=== PATIENT | female | born 1970 | race Caucasian/White ===

== ENCOUNTER 2021-09-18 04:50 | Emergency (ER) | payer OTHER ==
[2021-09-18 05:17] LABS: BASOPHIL 0.6 % (0-2); EOSINOPHIL 4.5 % (0-5); HCT 41.5 % (37.0-47.0); HGB 14.3 g/dl (12.5-16.0); LYMPHOCYTE 45.7 % (15-48); MCH 29.9 pg (25.0-31.0); MCHC 34.5 g/dL (32.0-36.0); MCV 86.6 fL (78.0-100.0); MONOCYTE 6.3 % (0-12); MPV 8.7 fL (6.0-9.5); NEUTROPHIL 42.6 % (41-80); NRBC 0; PLT 274 K/uL (150-400); RBC 4.79 M/uL (4.20-5.40); RDW 12.4 % (11.5-14.0); WBC 6.2 K/uL (4.0-10.5)
[2021-09-18 06:09] LABS: CREATININE 0.74 mg/dL (0.51-0.95); POTASSIUM 4.2 mmol/L (3.5-5.1)
[2021-09-18 06:23] LABS: ALBUMIN 3.7 g/dL (3.4-5.0); BILIRUBIN - TOTAL 0.3 mg/dL (0.2-1.0); C-REACTIVE PROTEIN 1.5 mg/dL (<=0.90); GLOBULIN (CALCULATION) 3.4 g/dL; TOTAL PROTEIN 7.1 g/dL (6.4-8.2)
== END 2021-09-18 08:30 | disposition home or self-care (01) ==
LOC: FER 04:50
PROVIDERS: Emergency Medicine
DX: U07.1 COVID-19 (principal); R07.89 Other chest pain; I10 Essential (primary) hypertension
CPT/HCPCS: 36415; 71045; 80053; 84484; 85025; 85379; 86140; 93005; J2270; J7030

== ENCOUNTER 2022-03-06 17:51 | Emergency (ER) | payer OTHER ==
[2022-03-06 18:19] LABS: BASOPHIL 0.6 % (0-2); EOSINOPHIL 3.8 % (0-5); HCT 44.3 % (37.0-47.0); LYMPHOCYTE 30.6 % (15-48); MCH 30.1 pg (25.0-31.0); MCHC 33.9 g/dL (32.0-36.0); MCV 88.8 fL (78.0-100.0); MONOCYTE 9.2 % (0-12); MPV 8.8 fL (6.0-9.5); NEUTROPHIL 55.6 % (41-80); NRBC 0; PLT 347 K/uL (150-400); RBC 4.99 M/uL (4.20-5.40); RDW 12.7 % (11.5-14.0); WBC 9.8 K/uL (4.0-10.5)
[2022-03-06 18:35] LABS: ALBUMIN 3.9 g/dL (3.4-5.0); BILIRUBIN - TOTAL 0.3 mg/dL (0.2-1.0); BUN/CREAT RATIO (CALC) 17.1 RATIO; CREATININE 1.05 mg/dL (0.51-0.95); GLOBULIN (CALCULATION) 3.7 g/dL; POTASSIUM 4.1 mmol/L (3.5-5.1); TOTAL PROTEIN 7.6 g/dL (6.4-8.2)
[2022-03-06 18:38] LABS: INR 1.02 (0.9-1.2); PROTHROMBIN TIME 12.8 SECONDS (11.8-13.4); PTT 28.6 SECONDS (24.4-34.7)
[2022-03-06 20:09] LABS: CORONAVIRUS 2019 SARS-COV-2 NEGATIVE (NEGATIVE); INFLUENZA A NAA NEGATIVE (NEGATIVE)
[2022-03-06] MEDS ORDERED: MEDROL 4MG DOSEP4 MG PO (22:33)
== END 2022-03-06 22:51 | disposition home or self-care (01) ==
LOC: FER 17:51
PROVIDERS: Emergency Medicine; Internal Medicine
DX: R07.89 Other chest pain (principal); R51.9 Headache, unspecified; I10 Essential (primary) hypertension; Z20.822 Contact with and (suspected) exposure to COVID-19
CPT/HCPCS: 36415; 71045; 80053; 84484; 85025; 85379; 85610; 85730; 93005; J1100; U0002